=== PATIENT | male | born 1975 | race Caucasian/White ===

== ENCOUNTER → 2020-08-15 | Outpatient (CLI) | payer OTHER ==
[~2020-08-15] MED LIST: CLONAZEPAM; CYMBALTA20 MG PO; CYMBALTA60 MG PO; FLEXERIL PO; KEPPRA XR500 MG; KLONOPIN1 MG PO; PERCOCET 5-3251 EACH PO
== END ==
LOC: M.PC 08-08 08:00
PROVIDERS: ATTEND Physical Medicine & Rehabilitation
DX: M51.16 Intervertebral disc disorders with radiculopathy, lumbar region (principal); M47.26 Other spondylosis with radiculopathy, lumbar region

== ENCOUNTER 2020-09-13 12:41 | Emergency (ER) | payer OTHER ==
[~2020-09-13] VITALS: Ht 190.5 cm; Wt 122.5 kg
[2020-09-13] MEDS ORDERED: KEPPRA XR500 MG PO (12:52)
[2020-09-13] MEDS ORDERED: BLOOD PRESSURE (12:54)
[2020-09-13 13:05] LABS: ABSOLUTE BASOPHILS 0.1 thou/uL (0.0-0.2); ABSOLUTE EOSINOPHILS 0.2 thou/uL (0.0-0.7); ABSOLUTE MONOCYTES 0.8 thou/uL (0.0-1.2); ABSOLUTE NEUTROPHILS 10.1 thou/uL (1.6-8.1); BASOPHILS 0.8 %; EOSINOPHILS 1.1 %; HEMATOCRIT 46.2 % (42.0-52.0); LYMPHOCYTES 26.3 %; MCH 31.8 pg (26.0-34.0); MCHC 34.6 g/dL (28.0-37.0); MCV 91.9 fL (80.0-100.0); MONOCYTES 5.2 %; MPV 7.6 fl. (7.2-11.1); NUCLEATED RBCS 0 /100WBC; PLATELET COUNT* 364 thou/uL (150-400); POLYS 66.6 %; RBC 5.03 mil/uL (4.50-6.00); RDW-CV 12.7 % (10.5-14.5); WBC 15.2 thou/uL (4.0-11.0)
[2020-09-13 13:11] LABS: CALCIUM 9.6 mg/dL (8.5-10.1); POTASSIUM 3.8 mmol/L (3.5-5.1)
[2020-09-13 13:14] LABS: APTT 26.4 Seconds (25.0-31.3); PROTIME 10.4 Seconds (9.20-11.50)
[2020-09-13 13:22] LABS: ALBUMIN 5.2 g/dL (3.4-5.0); TOTAL BILIRUBIN 0.6 mg/dL (<0.1-1.0); TOTAL PROTEIN 8.3 g/dL (6.4-8.2)
[2020-09-13] MEDS ORDERED: ATIVAN1 M1 PO (13:30)
[2020-09-13 13:38] LABS: URINE BILIRUBIN NEGATIVE (Negative); URINE BLOOD NEGATIVE (Negative); URINE CLARITY CLEAR; URINE COLOR STRAW; URINE GLUCOSE-RANDOM NEGATIVE (Negative); URINE KETONES NEGATIVE (Negative); URINE LEUKOCYTES-REFLEX NEGATIVE (Negative); URINE NITRITE-REFLEX NEGATIVE (Negative); URINE PROTEIN NEGATIVE (Negative); URINE SPECIFIC GRAVITY <= 1.005 (1.005-1.030); URINE UROBILINOGEN 0.2 E.U./dl (0.2-1.0)
[2020-09-13 14:51] VITALS: BP 126/84
--- NOTE | 2020-09-13 15:19 | EKG ---
[place] [address] ELECTROCARDIOGRAM REPORT Name: BEVERLY WILEY Room: [facility]#: [id number] Admission: 09/13/20 Attend Phys: Discharge: 09/13/20 Date of : 75 Date of Service: 09/13/20 1306 Report #: [id number] THIS REPORT FOR: //name// [facility] ED Test Date: 2020-09-13 Test Time: 13:06:56 Pat Name: BEVERLY WILEY Department: Room: Gender: Cutting Machine Operator Helper: NICK : 1975 Requested By: Ino Hernández Order Number: [id number] MD: Sammy Park Measurements Intervals [place] Rate: 96 P: 14 VT: 154 QRS: 4 QRSD: 91 T: 16 QT: 344 QTc: 435 Interpretive Statements Sinus rhythm Left atrial enlargement No previous ECG available for comparison Electronically Signed On 09-13-2020 15:19:03 CDT by Sammy Park [email or web address] <ELECTRONICALLY SIGNED> By: Sammy Park MD, [facility] 09/13/20 1519 1306 1306 Sammy Park MD, FACC /EPI
== END 2020-09-13 14:52 | disposition home or self-care (01) ==
LOC: M.ERS 12:41
PROVIDERS: Family Medicine
DX: F10.920 Alcohol use, unspecified with intoxication, uncomplicated (principal); R47.81 Slurred speech; R07.89 Other chest pain; R11.2 Nausea with vomiting, unspecified; Z98.890 Other specified postprocedural states; Z90.49 Acquired absence of other specified parts of digestive tract; Z86.011 Personal history of benign neoplasm of the brain; Z79.899 Other long term (current) drug therapy; Z88.6 Allergy status to analgesic agent; Z88.8 Allergy status to other drugs, medicaments and biological substances

== ENCOUNTER → 2020-09-14 | Outpatient (CLI) | payer OTHER ==
[~2020-09-14] MED LIST changes: +ATIVAN1 M1 PO; +BLOOD PRESSURE; +KEPPRA XR500 MG PO
== END ==
LOC: M.PC 09-12 08:40
PROVIDERS: ATTEND Physical Medicine & Rehabilitation
DX: M51.16 Intervertebral disc disorders with radiculopathy, lumbar region (principal); M47.26 Other spondylosis with radiculopathy, lumbar region; M79.604 Pain in right leg; M79.605 Pain in left leg

== ENCOUNTER 2021-03-31 11:04 | Inpatient (IN) | payer OTHER ==
[~2021-03-31] VITALS: Ht 182.9 cm; Wt 124.5 kg
[2021-03-31 11:06] VITALS: BP 178/120
[2021-03-31 11:45] LABS: HEMATOCRIT 49.4 % (42.0-52.0); MCH 31.4 pg (26.0-34.0); MCHC 34.5 g/dL (28.0-37.0); MPV 7.3 fl. (7.2-11.1); NUCLEATED RBCS 0 /100WBC; PLATELET COUNT* 352 thou/uL (150-400); RBC 5.43 mil/uL (4.50-6.00); RDW-CV 12.2 % (10.5-14.5); WBC 19.1 thou/uL (4.0-11.0)
[2021-03-31 11:55] LABS: CREATININE 1.7 mg/dL (0.6-1.3); POTASSIUM 4.3 mmol/L (3.5-5.1)
[2021-03-31 12:11] LABS: ALBUMIN 4.5 g/dL (3.4-5.0); TOTAL BILIRUBIN 0.6 mg/dL (<0.1-1.0); TOTAL PROTEIN 7.8 g/dL (6.4-8.2)
[2021-03-31 12:30] LABS: ABSOLUTE LYMPHOCYTES 1.3 thou/uL (0.8-5.3); ABSOLUTE MONOCYTES 0.8 thou/uL (0.0-1.2)
[2021-03-31 12:31] LABS: PLATELET ESTIMATE ADEQUATE
[2021-03-31 12:32] LABS: LARGE PLATELETS OCCASIONAL
[2021-03-31 14:43] LABS: URINE BILIRUBIN NEGATIVE (Negative); URINE BLOOD NEGATIVE (Negative); URINE CLARITY CLEAR; URINE COLOR YELLOW; URINE GLUCOSE-RANDOM NEGATIVE (Negative); URINE KETONES NEGATIVE (Negative); URINE LEUKOCYTES-REFLEX NEGATIVE (Negative); URINE NITRITE-REFLEX NEGATIVE (Negative); URINE PROTEIN NEGATIVE (Negative); URINE SPECIFIC GRAVITY >= 1.030 (1.005-1.030); URINE UROBILINOGEN 0.2 E.U./dl (0.2-1.0)
[2021-03-31 14:49] LABS: AMP/METHAMP Negative (Negative); BARBITURATES Negative (Negative); BENZODIAZEPINES Negative (Negative); COCAINE Negative (Negative); METHADONE Negative (Negative); OPIATES Negative (Negative); PCP Negative (Negative); THC Negative (Negative)
[2021-03-31 17:09] VITALS: BP 133/82
--- NOTE | 2021-03-31 17:43 | NUR ---
THE PATIENT ARRIVED A 1700. THE PATIENT IS ALERT. ABLE TO MAKE NEEDS KNOWN. SEZIURE PRECAUTIONS IN PLACE. DR DARBY CALLED TO MAKE AWARE OF THE CONSULT. DENIES PAIN, HOWEVER DOES C/O OF HEADACHE. LAST BM 03-31-21. VOIDS BRP. REGULAR DIET. LAST SEZUIRE HE BELIEVES WAS YESTERDAY. DOESNT RECALL WHEN HE TOOK HIS KEPPRA. CALL LIGHT WITHIN REACH.
[2021-03-31 17:47] VITALS: BP 126/769
[2021-03-31 20:30] VITALS: BP 129/78
[2021-03-31 23:58] VITALS: BP 143/90
[2021-04-01 04:00] VITALS: BP 139/88
[2021-04-01 04:14] LABS: ABSOLUTE BASOPHILS 0.1 thou/uL (0.0-0.2); ABSOLUTE EOSINOPHILS 0.1 thou/uL (0.0-0.7); ABSOLUTE LYMPHOCYTES 2.3 thou/uL (0.8-5.3); ABSOLUTE MONOCYTES 0.9 thou/uL (0.0-1.2); ABSOLUTE NEUTROPHILS 7.9 thou/uL (1.6-8.1); EOSINOPHILS 0.6 %; HEMATOCRIT 42.9 % (42.0-52.0); HEMOGLOBIN 15.1 gm/dL (14.0-18.0); MCH 31.6 pg (26.0-34.0); MCHC 35.3 g/dL (28.0-37.0); MCV 89.7 fL (80.0-100.0); MONOCYTES 8.3 %; MPV 7.4 fl. (7.2-11.1); NUCLEATED RBCS 0 /100WBC; POLYS 70.1 %; RBC 4.78 mil/uL (4.50-6.00); WBC 11.3 thou/uL (4.0-11.0)
[2021-04-01 04:21] LABS: PLATELET COUNT* 263 thou/uL (150-400)
[2021-04-01 04:24] LABS: CALCIUM 8.2 mg/dL (8.5-10.1); CREATININE 1.3 mg/dL (0.6-1.3)
--- NOTE | 2021-04-01 05:59 | NUR ---
PT SLEPT MOST OF SHIFT. ASSESSMENT DOCUMENTED. MEDS GIVEN PER E-MAR. IV PATENT. TYLENOL GIVEN PER E-MAR FOR LEMON. SEIZURE AND FALL PRECAUTIONS IN PLACE. PT ABLE TO MAKE NEEDS KNOWN. WILL CONTINUE WITH PLAN OF CARE.
[2021-04-01 07:47] VITALS: BP 154/92
--- NOTE | 2021-04-01 10:04 | NUR ---
ASSUMED CARE FOR PT THIS AM AROUND 0715- JAVA SOFTWARE IN PLACE ORDERED, TRACING SR- UPON ASSESSMENT PT NOTED TO BE SITTING UP IN BED, WATCHING TV- SEIZURE PRECAUTIONS IN PLACE INDICATED- PT A&O X4- CONT OF B/B- SBA WITH TRANSFERS FOR SAFETY- LCTA, RESP EVEN AND UN-LABROED- VSS, O2 SAT 98% ON RA- ABD SOFT/ROUND/NON-TENDER, BS X4 QUADS- BM REPORTED THIS AM- IV NOTED TO LEFT AC INTACT AND SL- GOOD PO INTAKE NOTED THIS AM WITH BREAKFAST- PRN TYLENOL GIVEN THIS AM R/T C/O HEAD ACHE- CALL LIGHT AND PERSONAL BELONGINGS WITH IN REACH- ALL NEEDS MET AT THIS TIME
[2021-04-01 11:30] VITALS: BP 141/84
[2021-04-01 16:00] VITALS: BP 148/87
[2021-04-01 20:00] VITALS: BP 138/89
[2021-04-01 23:45] VITALS: BP 133/95
[2021-04-02 04:46] VITALS: BP 114/64
--- NOTE | 2021-04-02 05:34 | NUR ---
PT SLEPT MOST OF SHIFT. ASSESSMENT DOCUMENTED. MEDS GIVEN PER E-MAR. IV PATENT. TYLENOL GIVEN PER E-MAR FOR LEMON. SEIZURE PRECAUTIONS IN PLACE. PT ABLE TO MAKE NEEDS KNOWN. WILL CONTINUE WITH PLAN OF CARE.
[2021-04-02 07:37] VITALS: BP 120/88
[2021-04-02 09:00] LABS: ABSOLUTE BASOPHILS 0.1 thou/uL (0.0-0.2); ABSOLUTE EOSINOPHILS 0.2 thou/uL (0.0-0.7); ABSOLUTE LYMPHOCYTES 2.3 thou/uL (0.8-5.3); ABSOLUTE MONOCYTES 0.7 thou/uL (0.0-1.2); ABSOLUTE NEUTROPHILS 6.1 thou/uL (1.6-8.1); EOSINOPHILS 2.6 %; HEMATOCRIT 45.6 % (42.0-52.0); HEMOGLOBIN 15.8 gm/dL (14.0-18.0); LYMPHOCYTES 24.5 %; MCH 31.3 pg (26.0-34.0); MCHC 34.7 g/dL (28.0-37.0); MCV 90.1 fL (80.0-100.0); MONOCYTES 7.4 %; MPV 7.5 fl. (7.2-11.1); NUCLEATED RBCS 0 /100WBC; PLATELET COUNT* 274 thou/uL (150-400); POLYS 64.5 %; RBC 5.06 mil/uL (4.50-6.00); RDW-CV 11.8 % (10.5-14.5); WBC 9.5 thou/uL (4.0-11.0)
[2021-04-02 09:16] LABS: ALBUMIN 4.1 g/dL (3.4-5.0); CALCIUM 8.7 mg/dL (8.5-10.1); CREATININE 1.2 mg/dL (0.6-1.3); POTASSIUM 4.1 mmol/L (3.5-5.1); TOTAL BILIRUBIN 0.6 mg/dL (<0.1-1.0); TOTAL PROTEIN 7.4 g/dL (6.4-8.2)
--- NOTE | 2021-04-02 09:16 | NUR ---
ASSUMED CARE OF PT THIS AM AROUND 0715- FLEET OPERATIONS MANAGER IN PLACE ORDERED, TRACING SR- UPON ASSESSMENT PT NOTED TO BE RESTING IN BED,M WATCHING TV- PT A&O X4- CONT OF B/B- SEIZURE PRECAUTIONS IN PLACE INDICATED- SBA WITH TRANSFERS FOR SAFETY- LCTA, RESP EVEN AND UN-LABORED- VSS, O2 SAT 98% ON RA- ABD SOFT/ROUND/NON-TENDER, BS X4 QUADS- BM REPORTED THIS AM- IV NOTED TO LEFT AC INTACT AND SL- FAIR PO INTAKE NOTED- PT DENIES PAIN THIS AM AND IS ASKING TO YURIY D/C'D- CALL LIGHT AND PERSONAL BELONGINGS WITH IN REACH- PT MAKES NEEDS KNOWN- ALL NEEDS MET AT THIS TIME
[2021-04-02 10:25] VITALS: BP 120/88
[2021-04-02 11:32] VITALS: BP 120/88
== END 2021-04-02 11:30 | disposition home or self-care (01) | DRG 101 ==
LOC: M.ERS 11:04 → M.TBA-ER 12:41 → M.2W 17:10
PROVIDERS: Physician Assistant; ADMIT Internal Medicine; ATTEND Internal Medicine
DX: G40.109 Localization-related (focal) (partial) symptomatic epilepsy and epileptic syndromes with simple partial seizures, not intractable, without status epilepticus (principal); N17.9 Acute kidney failure, unspecified; E87.2 Acidosis; D72.829 Elevated white blood cell count, unspecified; F10.20 Alcohol dependence, uncomplicated; F41.9 Anxiety disorder, unspecified; F32.9 Major depressive disorder, single episode, unspecified; D33.0 Benign neoplasm of brain, supratentorial; Z20.822 Contact with and (suspected) exposure to COVID-19; Z88.8 Allergy status to other drugs, medicaments and biological substances; Z91.19 Patient's noncompliance with other medical treatment and regimen; Z88.6 Allergy status to analgesic agent; Z28.21 Immunization not carried out because of patient refusal